=== PATIENT | male | born 1995 | race Caucasian/White ===

== ENCOUNTER 2019-01-19 12:18 | Emergency (ER) | payer SELFPAY ==
--- NOTE | 2019-01-19 14:46 | ED ---
Abdominal Pain/Male - HPI Summary HPI Summary: Patient is a 23 y/o M presenting to the ED for a chief complaint of left flank pain. Patient was seen at [facility] on 01/19/19 and told to go to the ED. Patient states the pain radiates to the left lower back. Patient was in the bathroom with constipation when he had a sudden onset of left flank pain and nausea that lasted approximately 4 minutes. Patient describes the pain as dull and rates the pain as 3/10 in severity. Patient denies any fever, chills , erythema of eyes, sore throat, CP, SOB, cough, vomiting, dysuria, hematuria, urinary burning, urinary frequency, edema, rash, or dizziness. Patient last had a bowel movement on 01/18/19. Patient has a PSHx of tympanic membrane surgery and a FMHx of kidney stones. Patient denies tobacco or alcohol use. Patient is an [employer] student. Allergies noted. - History of Current Complaint Chief Complaint: EDAbdPain Stated Complaint: ABD AND BACK PAIN Hx Obtained From: Patient Onset/Duration: Sudden Onset, Still Present Timing: Constant Severity Initially: Moderate Severity Currently: Moderate Pain Intensity: 3 Pain Scale Used: 0-10 Numeric Location: Flank - Left Radiates: Yes Radiates to: Back - Left Character: Dull Aggravating Factor(s): Nothing Alleviating Factor(s): Nothing Associated Signs And Symptoms: Positive: Back Pain - Left lower, Constipation, Nausea. Negative: Fever, Cough, Chest Pain, Dizzy, Urinary Symptoms - Negative dysuria, hematuria, urinary burning, or urinary frequency, Vomiting - Allergies/Home Medications Allergies/Adverse Reactions: Allergies Allergy/AdvReac Type Severity Reaction Status Date / Time No Known Allergies Allergy Verified 01/19/19 12:22 PMH/Surg Hx/FS Hx/Imm Hx Previously Healthy: Yes Endocrine/Hematology History: Denies: Hx Diabetes Cardiovascular History: Denies: Hx Hypercholesterolemia, Hx Hypertension Respiratory History: Denies: Hx Asthma Sensory History: Denies: Hx Legally Blind, Hx Deafness, Hx Hearing Aid Opthamlomology History: Denies: Hx Legally Blind EENT History: Denies: Hx Deafness - Surgical History Surgical History: Yes Surgery Procedure, Year, and Place: Tympanic membrane surgery at 4 y/o Infectious Disease History: No Infectious Disease History: Denies: Traveled Outside the [place] in Last 30 Days - Family History Known Family History: Positive: Other - Kidney stones - Social History Occupation: Student Lives: Alone Alcohol Use: None Hx Substance Use: No Substance Use Type: Reports: None Hx Tobacco Use: No Smoking Status (MU): Never Smoked Tobacco Review of Systems Negative: Fever, Chills Negative: Erythema Negative: Sore Throat Negative: Chest Pain Negative: Shortness Of Breath, Cough Positive: Nausea, Other - Positive constipation. Negative: Abdominal Pain, Vomiting Positive: flank pain - Left. Negative: burning - Urinary, dysuria, frequency - Urinary, hematuria Positive: Myalgia - Left lower back. Negative: Edema Negative: Rash Neurological: Other - Negative dizziness All Other Systems Reviewed And Are Negative: Yes Physical Exam - Summary Physical Exam Summary: Constitutional: Well-developed, Well-nourished, Alert. (-) Distressed Skin: Warm, Dry HENT: Normocephalic; Atraumatic Eyes: Conjunctiva normal Neck: Musculoskeletal ROM normal neck. (-) JVD, (-) Stridor, (-) Tracheal deviation Cardio: Rhythm regular, rate normal, Heart sounds normal; Intact distal pulses; The pedal pulses are 2+ and symmetric. Radial pulses are 2+ and symmetric. (-) Murmur Pulmonary/Chest wall: Effort normal. (-) Respiratory distress, (-) Wheezes, (-) Rales Abd: Soft, (-) tenderness, (-) Distension, (-) Guarding, (-) Rebound Musculoskeletal: (-) Edema. Left CVA tenderness Lymph: (-) Cervical adenopathy Neuro: Alert, Oriented x3 Psych: Mood and affect Normal Triage Information Reviewed: Yes Vital Signs On Initial Exam: Initial Vitals Temp Pulse Resp BP Pulse Ox 98.3 F 99 19 133/85 98 01/19/19 12:19 01/19/19 12:19 01/19/19 12:19 01/19/19 12:19 01/19/19 12:19 Vital Signs Reviewed: Yes Procedures - Sedation Patient Received Moderate/Deep Sedation with Procedure: No Diagnostics - Vital Signs Vital Signs Temp Pulse Resp BP Pulse Ox 01/19/19 12:19 98.3 F 99 19 133/85 98 - Laboratory Result Diagrams: 01/19/19 15:55 01/19/19 15:55 Lab Statement: Any lab studies that have been ordered have been reviewed, and results considered in the medical decision making process. - CT Abdomen/Pelvis CT CT Interpretation Completed By: Radiologist Summary of CT Findings: Abdomen/Pelvis CT IMPRESSION: NO HYDRONEPHROSIS OR NEPHROLITHIASIS. HEPATOMEGALY WITH FATTY INFILTRATION OF THE LIVER. Reviewed by ED physician. Re-Evaluation - Re-Evaluation First Re-Evaluation Time: 17:24 Change: Improved Comment: At 17:24, patient is feeling better. Abdominal Pain Male Course/Dx - Course Course Of Treatment: Patient is a 23 y/o M presenting to the ED for a chief complaint of left flank pain. Patient was seen at [facility] on 01/19/19 and told to go to the ED. Patient states the pain radiates to the left lower back. Patient was in the bathroom with constipation when he had a sudden onset of left flank pain and nausea that lasted approximately 4 minutes. Patient describes the pain as dull and rates the pain as 3/10 in severity. Patient denies any fever, chills, erythema of eyes, sore throat, CP, SOB, cough , vomiting, dysuria, hematuria, urinary burning, urinary frequency, edema, rash , or dizziness. Patient last had a bowel movement on 01/18/19. Patient has a PSHx of tympanic membrane surgery and a FMHx of kidney stones. Patient denies tobacco or alcohol use. Patient is an [employer] student. Allergies noted. On exam, left CVA tenderness. In the ED course, patient was given ketorolac 30 mg IV PUSH and fluids. Laboratory abnormal findings: urine protein 1+, urine blood 3+, urine WBC 1+, urine RBC 3+, and urine squamous epith cells present. Abdomen/Pelvis CT IMPRESSION: NO HYDRONEPHROSIS OR NEPHROLITHIASIS. HEPATOMEGALY WITH FATTY INFILTRATION OF THE LIVER. At 17:24, patient is feeling better. CVA tenderness and signs of hematuria, no hydro or stones seen , he likely passed a stone, urine cultures pending. Patient will be discharged with a diagnosis of renal colic. Follow up with [facility] and a urologist in 1-3 days. - Diagnoses Provider Diagnoses: Renal colic Discharge ED - Sign-Out/Discharge Documenting (check all that apply): Patient Departure - Discharge - Discharge Plan Condition: Stable Disposition: HOME Prescriptions: Naproxen TAB* [Naprosyn 250 mg TAB*] 500 mg PO Q8H PRN #15 tab PRN Reason: Pain - Severe Patient Education Materials: Renal Colic (ED) Referrals: [facility] [Outside] Keny Lozada MD [Medical Doctor] - Additional Instructions: Follow up with [facility] and urology in 1-3 days. Return to the Emergency Department for worsening or changing symptoms. - Attestation Statements Document Initiated by Scribe: Yes Documenting Scribe: La Roberson Provider For Whom Scribe is Documenting (Include Credential): Jin Kate MD Scribe Attestation: La Reyes, scribed for Jin Kate MD on 01/19/19 at 1811. Status of Scribe Document: Ready
[2019-01-19] MEDS ORDERED: Ketorolac INJ* 30 MG/ML 1 ML VIAL IV PUSH ONE (15:20)
[2019-01-19] MEDS ORDERED: NS 0.9% 1000 ML** 1,000 ML IV ONE (15:20)
[2019-01-19 16:03] LABS: ABS Lymphocytes 1.6 10^3/ul (1.0-4.8); ABS Monocytes 0.5 10^3/ul (0-0.8); ABS Neutrophils 6.2 10^3/ul (1.5-7.7); Eosinophil % 0.4 %; Hematocrit 42 % (42-52); Hemoglobin 14.4 g/dL (14.0-18.0); Lymphocyte % 19.5 %; Mean Corpuscular HGB Conc 34 g/dL (31-36); Mean Corpuscular Hemoglobin 30 pg (27-31); Mean Corpuscular Volume 88 fL (80-94); Mean Platelet Volume 8.4 fL (7.4-10.4); Nucleated Red Blood Cells % 0.1; Platelet Count 210 10^3/uL (150-450); Red Cell Distribution Width 13 % (10-15); White Blood Count 8.4 10^3/uL (3.5-10.8)
[2019-01-19 16:48] LABS: ALT 22 U/L (7-52); AST 18 U/L (13-39); Albumin 4.4 g/dL (3.2-5.2); Albumin/Globulin Ratio 1.4 (1-3); Alkaline Phosphatase 67 U/L (34-104); Anion Gap 8 mmol/L (2-11); BUN/Creatinine Ratio 9.4 (8-20); Blood Urea Nitrogen 8 mg/dL (6-24); C Reactive Protein < 1.00 mg/L (<8.01); CO2 Carbon Dioxide 25 mmol/L (22-32); Calcium 9.5 mg/dL (8.6-10.3); Chloride 108 mmol/L (101-111); EGFR African American 136.4 (>60); EGFR Non-African American 112.7 (>60); Globulin 3.1 g/dL (2-4); Glucose 97 mg/dL (70-100); Potassium 4.2 mmol/L (3.5-5.0); Sodium 141 mmol/L (135-145); Total Protein 7.5 g/dL (6.4-8.9)
[2019-01-19 17:22] LABS: Urine Appearance Cloudy; Urine Bacteria Absent (Absent); Urine Bilirubin Negative (Negative); Urine Blood 3+ (Negative); Urine Color Yellow; Urine Glucose Negative (Negative); Urine Ketones Negative (Negative); Urine Nitrite Negative (Negative); Urine Protein 1+(30 mg/dL) (Negative); Urine Red Blood Cell 3+(>10/hpf) (Absent); Urine Specific Gravity 1.019 (1.010-1.030); Urine Squamous Epithelial Cell Present (Absent); Urine Urobilinogen Negative (Negative); Urine White Blood Cell 1+(6-10/hpf) (Absent)
[2019-01-19 17:58] VITALS: BP 109/80
== END 2019-01-19 18:01 | disposition home or self-care (01) ==
LOC: ED 12:18
DX: N23 Unspecified renal colic (principal); K76.0 Fatty (change of) liver, not elsewhere classified; M54.5 Low back pain; K59.00 Constipation, unspecified; R11.0 Nausea
CPT/HCPCS: 36415; 74176; 80053; 81003; 81015; 83605; 83690; 85025; 86140; 87086; 96361; 96374; 99282; J1885